=== PATIENT | male | born 1990 | race Caucasian/White ===

== ENCOUNTER → 2016-09-02 | Outpatient (CLI) | payer OTHER ==
[2016-09-02 11:10] LABS: CHLORIDE,CL 108 mmol/L (98-110); SODIUM,NA 139 mmol/L (136-146)
== END ==
LOC: MW.CHFP 10:12
PROVIDERS: ATTEND Nurse Practitioner Family
DX: Z02.6 Encounter for examination for insurance purposes (principal)
CPT/HCPCS: 36415; 80053; 80061